=== PATIENT | male | born 1975 | race Caucasian/White ===

== ENCOUNTER 2023-12-11 14:34 | Outpatient (RCR) | payer BC, SELFPAY ==
[2023-12-11 14:40] VITALS: BP 135/75
[2023-12-11 14:53] LABS: % Basophils 0.4 % (0-2); % Eosinophils 2.7 % (0-6); % Immature Granulocytes 0.3 % (0-0.5); % Lymphocytes 11.8 % (20.5-51.1); % Monocytes 7.4 % (1.7-9.3); % Neutrophils 77.4 % (42.2-75.2); Absolute Eosinophils 0.2 10^3/uL (0-0.7); Absolute Lymphocytes 0.9 10^3/uL (1.2-3.4); Absolute Monocytes 0.6 10^3/uL (0.1-0.6); Absolute Neutrophils 6.1 10^3/uL (1.4-6.5); Hematocrit 37.1 % (39.0-52.0); Mean Corpuscular Hgb 31.9 pg (27.0-31.0); Mean Corpuscular Volume 90.9 fL (80.0-94.0); Platelet Count 190 10^3/uL (130-400); Red Blood Cell Count 4.08 10^6/uL (4.70-6.10); Red Cell Dist. Width 12.6 % (11.5-14.5); White Blood Cell Count 7.9 10^3/uL (4.8-10.8)
[2023-12-11 15:15] VITALS: BP 143/88
[2023-12-11 15:20] VITALS: BP 145/78
== END 2024-01-08 23:59 | disposition home or self-care (01) ==
LOC: OID 14:34
PROVIDERS: ATTENDING PHYSICIAN Internal Medicine Hematology; FAMILY PHYSICIAN Family Medicine
DX: E83.110 Hereditary hemochromatosis (principal)
CPT/HCPCS: 85025; 99195

== ENCOUNTER → 2024-05-14 09:36 | Outpatient (REF) | payer BC, SELFPAY | LOC: RAD 09:36 | PROVIDERS: ATTENDING PHYSICIAN Internal Medicine Gastroenterology; FAMILY PHYSICIAN Family Medicine | DX: K76.89 Other specified diseases of liver (principal) | CPT/HCPCS: 76700 ==

== ENCOUNTER 2024-09-22 08:32 | Outpatient (RCR) | payer BC, SELFPAY ==
[2024-09-22 09:00] VITALS: BP 131/92
[2024-09-22 09:10] VITALS: BP 130/85
[2024-09-22 09:15] VITALS: BP 125/81
== END 2024-09-23 10:34 | disposition home or self-care (01) ==
LOC: OID 08:32
PROVIDERS: ATTENDING PHYSICIAN Internal Medicine Hematology; FAMILY PHYSICIAN Family Medicine
DX: E83.110 Hereditary hemochromatosis (principal)
CPT/HCPCS: 99195

== ENCOUNTER 2025-04-27 16:52 | Emergency (ER) | payer OTHER, SELFPAY ==
[2025-04-27 16:53] VITALS: BP 157/105
[2025-04-27 17:09] VITALS: BP 156/98
[2025-04-27 19:12] VITALS: BP 136/91
[2025-04-27] MEDS: VENTOLIN NEBULES 2.5 MG INH (19:43)
[2025-04-27 20:00] VITALS: BP 133/92
--- NOTE | 2025-04-27 20:17 | ED.GENMED ---
History of Present Illness
General
Chief Complaint: Breathing Problem
Source: patient
Time Seen by Provider: 04/27/25 18:29
History of Present Illness
History of Present Illness:
Note:
CHIEF COMPLAINT(S)
Wheezing, dizziness, and disorientation after swimming.
HISTORY OF PRESENT ILLNESS
The patient is a 49-year-old male who presented with wheezing, dizziness, and disorientation after swimming at a pool. The symptoms began following an incident where he jumped feet first into the pool, possibly impacting a metal grate, leading to a
minor scratch on his neck. After the incident, the patient experienced disorientation and dizziness, particularly noticeable in the locker room post-incident. He also noticed wheezing and decided to call for an ambulance due to feeling unsafe to
drive. Upon arrival, the patient reported feeling slightly improved but still wobbly. There's been no headache, chest pain, or significant difficulty breathing at the time of evaluation.
The patient had already completed numerous laps in the pool and was somewhat fatigued due to exercise before the incident. A The patient was noted to potentially have aspirated minimal pool water.
Past History
Past History
ED Past Medical History: Asthma and Other (Hemachromatosis like syndrome)
ED Past Surgical History: Other (Hernia)
Social History
Tobacco: Non-smoker
Alcohol: None
Drug: None
Personal: Other (Noncontributory)
Living: with family
Employment: Employed
Family History
Family History: Other (Parent apparently with similar illness)
Review of Systems
Review of Systems
All Other Systems: ROS reviewed and negative except as documented in HPI and ROS
Phy Exam
Physical Exam
Physical Exam:
GENERAL: Alert , in no apparent distress
EYE: conjunctiva clear
NECK: Supple, no significant adenopathy.
ENT: o/p clr, mmm.
CARDIAC: Regular rate and rhythm
LUNGS: Posterior lung field expiratory wheeze, no acute respiratory distress, speaking full sentences, no rales or rhonchi
NEUROLOGICAL: Alert and oriented
SKIN: Warm and dry, Very superficial abrasion of the skin posterior neck along the right paracervical region
MUSCULOSKELETAL: well perfused.
PSYCH: Normal and appropriate interaction.
Scores
Heart Failure Risk
Heart Failure Risk Score: Not Applicable
Heart Score for Chest Pain Patients
STEMI patient?: Not applicable
Withdrawal Assessment of Alcohol
Withdrawal Assessment Completed?: Not applicable
Course
Orders/Labs/Results
Orders:
Orders
04/27/25 16:57
CR Chest - 2 Views Urgent
Comment: possible pool water aspiration
Reason For Exam: shortness of breath
04/27/25 19:36
Electrocardiogram (*1) Urgent
Reason for Study: Shortness of Breath
EKG- Treatment ONCE
Albuterol Nebs [Ventolin Nebules] 2.5 mg INH R NOW STA
Vital Signs
Initial and Last Documented VS:
Initial Vital Signs
Temp Pulse Resp BP Pulse Ox
98.4 F 99 16 157/105 98
04/27/25 16:53 04/27/25 16:53 04/27/25 16:53 04/27/25 16:53 04/27/25 16:53
Last Documented Vital Signs
Temp Pulse Resp BP Pulse Ox
98.4 F 91 12 133/92 99
04/27/25 16:53 04/27/25 20:15 04/27/25 20:15 04/27/25 20:00 04/27/25 20:18
MDM/Problems Addressed
Differential Diagnosis Includes:
The Differential Diagnosis includes, in no particular order and is not limited to:
- Exercise-induced bronchospasm
- Aspiration pneumonia
- Cervical strain
- Concussion
- Acute stress reaction
- Syncope
- Vestibular dysfunction
- Dehydration
- Hyperventilation syndrome
- Anxiety disorder
MDM/Problems Addressed:
- Administer albuterol nebulizer for wheezing.
- Conduct an EKG to rule out ischemic issues due to lightheadedness.
- Prescribe an inhaler for use at home.
- Provide reassurance regarding the overall findings and discharge if no further concerns arise.
*Pulse Oximetry
SaO2: 99
Oxygen Mode of Delivery: Room air
*EKG
Heart Rate: 75
Rate: normal
Rhythm: sinus
[place]: normal axis
Ischemia: no ischemia
*Box Repairer Interpretation
Rate: normal
Rhythm: sinus
*Critical Care Note
Total Time (30-74mins, 75-104mins- exclusive of procedures): Not Applicable
Patient Management
Escalation/DeEscalation of care consider admission/obs:
Following nebulizer treatment patient's wheezing is fully resolved and he reports feeling significantly better. Prescription for albuterol was sent to patient's pharmacy as he does have a nebulizer at home. Patient aware of return precautions but
otherwise stable for discharge.
ED Attending Note
-
Portions of this chart may have been created with voice recognition software.� Occasional wrong word or��sound alike� substitutions may have occurred due to the inherent limitations of voice recognition software.
Discharge Plan
Departure
Patient Disposition: Home (Routine Discharge)
Date of Disposition: 04/27/25
Time of Disposition: 20:17
Patient with high blood pressure during this ER visit?: Yes
Discharge Problem:
Aspiration into respiratory tract
Instructions: Asthma, Adult (DC)
Prescriptions:
New
albuterol sulfate 2.5 mg /3 mL (0.083 %) solution for nebulization
2.5 mg inhalation QID PRN (Reason: shortness of breath or wheezing) Qty: 180 0RF
No Action
acetaminophen 325 MG tablet
325 mg PO PRN PRN (Reason: pain)
aspirin [Aspir-Low] 81 MG tablet,delayed release (DR/EC)
81 mg PO HS
fluticasone propionate 1 SPRAY spray,suspension
1 spray intranasal PRN PRN (Reason: ALLERGIES)
losartan 50 MG tablet
50 mg PO HS
escitalopram oxalate [Lexapro] 5 mg Tablet
5 mg PO HS
tamsulosin 0.4 mg Capsule
0.4 mg PO DAILY
Referrals:
Misbah Justice MD [Family Provider, Family Practice]
Interventions
Interventions:
*Risk Screen - Suicide Last Done: 04/27/25 17:15
*General Assessment Last Done: 04/27/25 17:15
*Neglect/Abuse Screening Last Done: 04/27/25 17:15
*ED- Fall Risk Assessment Last Done: 04/27/25 17:15
*ED COVID-19 Vaccine History Last Done: 04/27/25 17:15
*Nursing Disposition Last Done: 04/27/25 20:24
ED- Cardiac Assessment Last Done: 04/27/25 17:15
ED- Pulmonary Assessment Last Done: 04/27/25 17:15
Discharge Date and Time
Discharge Date/Time: 04/27/25 20:24
Print Language: GEORGIAN
== END 2025-04-27 20:24 | disposition home or self-care (01) ==
LOC: EMR 16:52
PROVIDERS: EMERGENCY PHYSICIAN Student in an Organized Health Care Education/Training Program; FAMILY PHYSICIAN Family Medicine
DX: T17.990A Other foreign object in respiratory tract, part unspecified in causing asphyxiation, initial encounter (principal); X58.XXXA Exposure to other specified factors, initial encounter; J45.909 Unspecified asthma, uncomplicated
CPT/HCPCS: 94640; 99284; 71046; 93005

== ENCOUNTER → 2025-05-05 10:29 | Outpatient (REF) | payer OTHER, SELFPAY | LOC: RAD 10:29 | PROVIDERS: ATTENDING PHYSICIAN Internal Medicine Gastroenterology; FAMILY PHYSICIAN Family Medicine | DX: E83.110 Hereditary hemochromatosis (principal) | CPT/HCPCS: 76700 ==

== ENCOUNTER 2025-06-07 14:26 | Outpatient (RCR) | payer OTHER, SELFPAY | END 2025-06-07 23:59 | disposition home or self-care (01) | LOC: RPT 14:26 | PROVIDERS: ATTENDING PHYSICIAN Family Medicine | DX: M54.2 Cervicalgia (principal); Z73.6 Limitation of activities due to disability; W25.XXXD Contact with sharp glass, subsequent encounter | CPT/HCPCS: 97110; 97112; 97140; 97162; 97530 ==

== ENCOUNTER 2025-07-06 17:02 | Outpatient (RCR) | payer SELFPAY | END 2025-07-06 23:59 | disposition home or self-care (01) | LOC: RPT 17:02 | PROVIDERS: ATTENDING PHYSICIAN Family Medicine | DX: M54.2 Cervicalgia (principal); Z73.6 Limitation of activities due to disability; W25.XXXD Contact with sharp glass, subsequent encounter | CPT/HCPCS: 97010; 97110; 97112; 97140 ==

== ENCOUNTER 2025-08-02 18:02 | Outpatient (RCR) | payer SELFPAY | END 2025-08-02 23:59 | disposition home or self-care (01) | LOC: RPT 18:02 | PROVIDERS: ATTENDING PHYSICIAN Family Medicine | DX: M54.2 Cervicalgia (principal); Z73.6 Limitation of activities due to disability; W25.XXXD Contact with sharp glass, subsequent encounter | CPT/HCPCS: 97010; 97110; 97112; 97140 ==